=== PATIENT | male | born 1980 | race Caucasian/White ===

== ENCOUNTER → 2016-08-06 | Emergency (ER) | payer MEDICAID ==
[~2016-08-06] VITALS: Ht 190.5 cm; Wt 54.4 kg
[~2016-08-06] MED LIST: ACETAMINOPHEN 325 MG TAB PO ONE; LORazepam 0.5 MG TAB PO ONE
[2016-08-06 23:55] LABS: Basophils # (auto) 0 uL; Basophils % (auto) 0.8 % (0.0-2.0); Eosinophils # (auto) 0.2 uL; Eosinophils % (auto) 3.2 % (0.0-7.0); Hematocrit 49.3 % (41.0-53.0); Hemoglobin 16.5 g/dL (13.5-17.5); Lymphocytes # (auto) 1.2 uL; Lymphocytes % (auto) 23.9 % (10.0-50.0); Mean Corpuscular Hemoglobin 31.7 pg (28.0-32.0); Mean Corpuscular Hgb Conc. 33.5 g/dL (32.0-36.0); Mean Corpuscular Volume 94.4 fL (80.0-100.0); Mean Platelet Volume 6.9 fL (7.4-10.4); Monocytes # (auto) 0.4 uL; Monocytes % (auto) 8.3 % (0.0-12.0); Neutrophils # (auto) 3.3 uL; Neutrophils % (auto) 63.8 % (37.0-80.0); Platelet Count (auto) 254 10^3/uL (140-450); Red Cell Distribution Width 12.6 % (11.6-16.0); White Blood Cell 5.1 10^3/uL (4.4-10.8)
[2016-08-07 00:02] LABS: Potassium 4.1 mmol/L (3.5-5.1)
[2016-08-07 00:03] LABS: Calcium 8.7 mg/dL (8.5-10.1)
[2016-08-07 00:04] LABS: Bilirubin, Total 0.9 mg/dL (0.2-1.0); Total Protein 8.1 g/dL (6.4-8.2)
[2016-08-07 00:06] LABS: Salicylate < 1.7 mg/dL (2.8-20.0)
[2016-08-07 00:07] LABS: Acetaminophen < 2.0 ug/mL (10-30)
[2016-08-07 01:48] LABS: Urine Bilirubin Negative (Negative); Urine Blood Negative /uL (Negative); Urine Glucose Normal (Normal); Urine Ketone Negative (Negative); Urine Nitrite Negative (Negative); Urine RBC <1 /hpf (0 - 3); Urine Urobilinogen Normal (Negative)
[2016-08-07 01:50] LABS: Urine Color Straw (Yellow)
[2016-08-08] MEDS: LORazepam 0.5 MG TAB PO PRN (13:51)
[2016-08-09] MEDS: LORazepam 0.5 MG TAB PO PRN (19:51)
[2016-08-09 21:08] VITALS: BP 115/85
== END | disposition home or self-care (01) ==
LOC: ER 21:47
DX: F32.9 Major depressive disorder, single episode, unspecified (principal); R45.851 Suicidal ideations
CPT/HCPCS: 36415; 80053; 80307; 80320; 80329; 81001; 85025